=== PATIENT | female | born 1980 | race American Indian/Alaskan Native ===

== ENCOUNTER 2021-05-27 08:24 | Emergency (ER) | payer MEDICAID ==
[2021-05-27 08:35] VITALS: BP 146/67
[2021-05-27] MEDS ORDERED: MORPHINE 4 MG/1 ML INJ IV ONE ×2 (08:38→13:07)
[2021-05-27] MEDS ORDERED: ONDANSETRON 4 MG/2 ML INJ IV ONE (08:38)
--- NOTE | 2021-05-27 09:05 | Emergency Department Report ---
ED Back Pain/Injury HPI - General Chief Complaint: Extremity Injury, Lower Stated Complaint: BACK PAIN Time Seen by Provider: 05/27/21 08:34 Source: patient Limitations: No Limitations - History of Present Illness Initial Comments: 40-year-old -[place] female presents to the emergency room for severe lower back pain that radiates down to her foot which becomes numb. She denies any injury. Denies any fever no weight loss no urinary bowel incontinent. States that it is difficult to walk. MD Complaint: back pain Similar Symptoms Previously: No Severity scale (0 -10): 10 Quality: sharp, stabbing Consistency: constant Improves With: none Worsens With: movement, walking Associated Symptoms: difficulty walking Treatments Prior to Arrival: NSAIDS, acetaminophen, prescription analgesics - Related Data Previous Rx's Medication Instructions Recorded Last Taken Type Cyclobenzaprine [Flexeril] 10 mg PO TID PRN #15 tablet 05/27/21 Unknown Rx Diclofenac Sodium 50 mg PO BID PRN #20 tablet. 05/27/21 Unknown Rx methylPREDNISolone [Medrol 4MG 4 mg PO DAILY #1 tab.ds.pk 05/27/21 Unknown Rx DOSEPAK (21 tabs)] Allergies Allergy/AdvReac Type Severity Reaction Status Date / Time No Known Allergies Allergy Unverified 05/27/21 08:34 ED Review of Systems ROS: Stated complaint: BACK PAIN Other details as noted in HPI Comment: All other systems reviewed and negative ED Past Medical Hx - Medications Home Medications: Home Medications Medication Instructions Recorded Confirmed Last Taken Type Cyclobenzaprine [Flexeril] 10 mg PO TID PRN #15 tablet 05/27/21 Unknown Rx Diclofenac Sodium 50 mg PO BID PRN #20 tablet. 05/27/21 Unknown Rx methylPREDNISolone [Medrol 4MG 4 mg PO DAILY #1 tab.ds.pk 05/27/21 Unknown Rx DOSEPAK (21 tabs)] ED Physical Exam - General Limitations: No Limitations General appearance: alert, in distress - Head Head exam: Present: atraumatic, normocephalic - Eye Eye exam: Present: normal appearance - ENT ENT exam: Present: mucous membranes moist, normal external ear exam - Neck Neck exam: Present: normal inspection, full ROM - Respiratory Respiratory exam: Present: normal lung sounds bilaterally - Cardiovascular Cardiovascular Exam: Present: regular rate - Back Exam Back exam: Present: tenderness. Absent: full ROM - Expanded Back Exam Expanded Back exam: Sciatic Notch Tenderness: Right, Positive Straight Leg Raise: Right - Neurological Exam Neurological exam: Present: alert, oriented X3, abnormal gait - Psychiatric Psychiatric exam: Present: normal affect, normal mood - Skin Skin exam: Present: warm, dry, intact, normal color. Absent: rash ED Course Vital Signs 05/27/21 05/27/21 08:32 08:35 Temperature 98.2 F Pulse Rate 60 Blood Pressure 146/67 O2 Sat by Pulse 100 Oximetry ED Medical Decision Making - Lab Data Result diagrams: 05/27/21 11:50 05/27/21 08:37 Critical care attestation.: If time is entered above; I have spent that time in minutes in the direct care of this critically ill patient, excluding procedure time. ED Disposition Clinical Impression: Lumbar back pain with radiculopathy affecting right lower extremity, Sciatica of right side Disposition: HOME / SELF CARE / HOMELESS Is pt being admited?: No Does the pt Need Aspirin: No Condition: Stable Instructions: Sciatica, [id number] Additional Instructions: Please take medication as prescribed. Your CT scan shows multiple areas of disc protrusion. This is chronic. Is very important you follow-up with your neuro surgeon I have listed their information below for your convenience. Be sure to increase your water intake while taking medication. Prescriptions: Diclofenac Sodium 50 mg PO BID PRN #20 tablet.dr MCCULLOUGH Reason: Pain , Severe (7-10) Cyclobenzaprine [Flexeril] 10 mg PO TID PRN #15 tablet PRN Reason: Muscle Spasm methylPREDNISolone [Medrol 4MG DOSEPAK (21 tabs)] 4 mg PO DAILY #1 tab.ds.pk Referrals: EMMETT GELLER II, MD [Staff Physician] - PRIMARY CARE, [Primary Care Provider] - 3-5 Days Forms: Work/School Release Form(ED) Time of Disposition: 15:29
[2021-05-27 09:54] LABS: Alanine Aminotransferase 10 units/L (7-56); Blood Urea Nitrogen 10 mg/dL (7-17); Calcium 8.7 mg/dL (8.4-10.2); Hemolysis Index 4
[2021-05-27 10:17] LABS: BUN/Creatinine Ratio 14
[2021-05-27 10:28] LABS: HCG Qualitative,Urine Negative (Negative)
--- NOTE | 2021-05-27 12:29 | Cat Scan Report ---
. CT lumbar spine w con INDICATION / CLINICAL INFORMATION: 40 years Female; severe back pain with numbness OMNI 300 100 ML. TECHNIQUE: Axial CT images of the lumbar spine were obtained following IV contrast. Sagittal and coronal reform atted images were produced. All CT scans at this location are performed using CT dose reduction for A SILVIO by means of automated exposure control. COMPARISON: None available. FINDINGS: POST-SURGICAL CHANGES: None. ALIGNMENT: No significant abnormality. VERTEBRAE: No signs of fracture. Vertebral bodies are grossly normal in height throughout. [id number] ANALYSIS: L1-2: No significant canal stenosis, lateral recess stenosis, or foraminal narrowing. L2-3: Very small foraminal disc protrusion on the left without significant sequela. L3-4: Mild disc bulge. Mild to moderately sized right paracentral disc extrusion seen with disc to e xtending to the pedicular level of L4. Findings may affect the right L4 nerve in the lateral recess r egion. L4-5: Broad-based posterocentral/left lateral recess disc protrusion. Overall there is mild canal la teral recess narrowing seen. Findings may affect the L5 nerves. L5-S1: There is suggestion of a right paracentral disc extrusion, disc material extending to the ped icular level of S1. Mild facet hypertrophy. Mild to moderate foraminal narrowing bilaterally with enc roachment upon L5 nerves. No impingement seen. PARASPINAL SOFT TISSUES: No significant abnormality. ADDITIONAL FINDINGS: I see no signs of abnormal enhancement following contrast administration. IMPRESSION: 1. Degenerative changes of the lumbar spine as described above. Most marked findings appear to be at L3-4, L4-5, and L5-S1. Please correlate with dermatomal distribution of patient's symptoms, if presen t. Signer Name: Matt Orr MD, III Signed: 05/27/2021 12:24 PM Workstation Name: [id number]
[2021-05-27 13:37] LABS: Erythrocyte Sedimentation Rate 9 mm/Hr (0-20)
[2021-05-27 13:40] LABS: Basophils % (Auto) 0.2 % (0.0-1.8); Eosinophils # (Auto) 0.2 K/mm3 (0.0-0.4); Eosinophils % (Auto) 1.5 % (0.0-4.3); Hematocrit 28.3 % (30.3-42.9); Hemoglobin 9.2 gm/dl (10.1-14.3); Lymphocytes # (Auto) 2.2 K/mm3 (1.2-5.4); Lymphocytes % (Auto) 22.2 % (13.4-35.0); Mean Corpuscular HGB Conc 33 % (30-34); Mean Corpuscular Volume 91 fl (79-97); Monocytes # (Auto) 0.7 K/mm3 (0.0-0.8); Monocytes % (Auto) 6.6 % (0.0-7.3); Platelet Count 215 K/mm3 (140-440); Red Blood Count 3.11 M/mm3 (3.65-5.03); Red Cell Distribution Width 14.8 % (13.2-15.2)
== END 2021-05-27 15:52 | disposition home or self-care (01) ==
LOC: ED 08:24
DX: M54.16 Radiculopathy, lumbar region (principal); M54.31 Sciatica, right side
CPT/HCPCS: 36415; 72132; 80053; 81025; 85025; 85652; 96374; 96375; 96376; 99284; J2270; J2405; Q9967